=== PATIENT | female | born 1975 | race Caucasian/White ===

== ENCOUNTER 2020-02-15 00:59 | Outpatient (CLI) | payer MEDICAID, SELFPAY ==
--- NOTE | 2020-02-15 | DI.US_ITS ---
EXAM: MYOFASCIAL PAIN SYNDROME OF THORACIC SPINE COMPARISON: No exams were available for comparison TECHNIQUE: Ultrasound performed using standard protocol. FINDINGS: Sonography was provided for Dr. Robles during the performance of a trigger point injection of the righ t rhomboid and trapezius muscles. Please refer to the procedure report for complete details. DATA REPOSITORY:
[2020-02-15 13:50] VITALS: BP 109/83; PULSE 93; RESP 16; TEMP 36.7; O2SAT 98
--- NOTE | 2020-02-15 14:37 | PDOC.PAIN_ITS ---
Pain Clinic Procedure Note Procedure Note Procedure Note: ULTRASOUND GUIDED RIGHT trapeizius, rhomboid and levator scapulae muscle trigger point INJECTIONS Pre-Procedural Evaluation: SHARON MALDONADO has been referred to the [facility] for an Ultrasound Guided right trapezius, rhomboid and levator scapulae muscle trigger point injection for a chief complaint of right shoulder blade area pain. Pre-procedure Pain Score: 5/10 Patient was interviewed and the medical record reviewed. There were no medical, pharmacologic, radiographic, or other structural contraindications to preforming an ultrasound guided injection. Risks and expected side effects as well as potential benefits of the procedure were reviewed. The patient consent form was signed and witnessed. Standard time-out procedure was performed. The use of direct ultrasound visualization of the needle (rather than a non- guided injection) was required to increase patient safety by excluding inadvertent intramuscular, intratendinous, or intraneural needle placement and minimizing bleeding by avoiding osteochondral or vascular injury from the needle. Additionally, the increased accuracy of placement may increase clinical effectiveness and will allow higher diagnostic specificity when evaluating effectiveness of this injection. Procedure Description: The patient was placed in theprone position and automated blood pressure cuff and pulse oximeter applied for monitoring during the procedure and recorded in the medical record. Pre-injection ultrasound scanning of the area of interest was performed using linear transducer, identifying relevant anatomy, landmarks, and neurovascular structures allowing for optimal needle path. The site was then prepared in the usual sterile fashion, using thorough Chlorhexadine preparation of the skin and sterile draping. The same ultrasound transducer was then passed into the sterile field using sterile probe cover and sterile ultrasound gel. The injection target was again visualized. Skin and subcutaneous tissues were anesthetized with [NUMBERS] mL of 1% Lidocaine. A 1.5 25 guage was placed under live ultrasound guidance, using an in-plane approach, to the 5 target areas. After visualization of the needle tip at the target area, a mixture of 4 mL 2% Lidocaine and 1 mL Depomedrol (40 mg/cc), totaling 5 mL of injectate (1 cc to each location) was delivered after negative aspiration for blood. Ultrasound images were captured and stored for documentation purposes. The lung was visualized at all times. Post-procedure Pain Score:1/10 Vital signs were stable throughout the procedure and were as recorded in the docflowsheet by the nursing staff. Follow up plans and appointments were discussed with the patient.Post procedure instruction was given as documented in nursing documentation and having met discharge criteria, they were discharged from the [facility]. COMMENTS: This procedure can be completed up to 3 times per 12 months if it is found to be helpful. Thiago Robles DO, MPH Pain Management
[2020-02-15 14:46] VITALS: PULSE 93; O2SAT 100
[2020-02-15] MEDS: Lidocaine 2% Pres-Free 5 ML VIAL IJ (14:53)
[2020-02-15] MEDS: methylPREDNISolone ACETATE 40 MG/ML VIAL (14:53)
== END 2020-02-15 01:19 ==
PROVIDERS: PCP Family Medicine; Visit Provider Preventive Medicine Occupational Medicine
DX: M79.18 Myalgia, other site (principal)
CPT/HCPCS: 20552; 76942; J1030

== ENCOUNTER 2020-11-28 00:34 | Outpatient (CLI) | payer MEDICAID, SELFPAY ==
[2020-11-28 09:01] VITALS: BP 134/69; PULSE 77; RESP 16; TEMP 36.8; O2SAT 99
--- NOTE | 2020-11-28 09:15 | DI.US_ITS ---
Exam(s) US PAIN CLINIC NEEDLE GUIDANCE EXAM: RT S1 RADICULOPATHY,LUMBAR SPONDYLOSIS,ULTRASOUND GUIDED TPI COMPARISON: US US PAIN CLINIC NEEDLE GUIDANCE from 02/15/2020 TECHNIQUE: Ultrasound performed using standard protocol. FINDINGS: Ultrasound guidance was provided during trigger point injection in the right upper back region. Radi ologist was not present. IMPRESSION: DATA REPOSITORY:
[2020-11-28] MEDS: Dexamethasone Sod. Phos./Pres-Free 10 MG/ML VIAL IJ (09:28)
[2020-11-28 09:30] VITALS: PULSE 70; O2SAT 100
[2020-11-28] MEDS: Lidocaine 1% Pres-Free 5 ML VIAL IJ (09:30)
--- NOTE | 2020-11-28 09:30 | PDOC.PAIN_ITS ---
Pain Clinic Procedure Note Procedure Note Procedure Note: Date of service: November 28, 2020 ULTRASOUND GUIDED RIGHT Trapezius, rhomboid and thoracic paraspinous trigger point INJECTIONS Pre-Procedural Evaluation: Amisha Freeman has been referred to the [facility] for an Ultrasound Guided [right trapezius, rhomboid and thoracic paraspinous muscle trigger point injections for a chief complaint of upper back pain. Pre-procedure Pain Score: 6/10 DX: Muscle pain Patient was interviewed and the medical record reviewed. There were no medical, pharmacologic, radiographic, or other structural contraindications to preforming an ultrasound guided injection. Risks and expected side effects as well as potential benefits of the procedure were reviewed. The patient consent form was signed and witnessed. Standard time-out procedure was performed. The use of direct ultrasound visualization of the needle (rather than a non- guided injection) was required to increase patient safety by excluding inadvertent intramuscular, intratendinous, or intraneural needle placement and minimizing bleeding by avoiding osteochondral or vascular injury from the needle. Additionally, the increased accuracy of placement may increase clinical effectiveness and will allow higher diagnostic specificity when evaluating effectiveness of this injection. Procedure Description: The patient was placed in theprone position and automated blood pressure cuff and pulse oximeter applied for monitoring during the procedure and recorded in the medical record. Pre-injection ultrasound scanning of the area of interest was performed using a linear transducer, identifying relevant anatomy, landmarks, and neurovascular structures allowing for optimal needle path. The site was then prepared in the usual sterile fashion, using thorough Chlorhexadine preparation of the skin and sterile draping. The same ultrasound transducer was then passed into the sterile field using sterile probe cover and sterile ultrasound gel. The injection target was again visualized. Skin and subcutaneous tissues were anesthetized with 3 mL of 1% Lidocaine. A 1.5 25 guage needle was placed under live ultrasound guidance, using an in- plane approach, to the target area. After visualization of the needle tip at the target area, a mixture of 1 mL dexamethasone (10 mg/cc) and 3 cc of 1% Lidocaine, totaling 4 mL of injectate was delivered after negative aspiration for blood. Ultrasound images were captured and stored for documentation purposes. Post-procedure Pain Score:2/10 Vital signs were stable throughout the procedure and were as recorded in the docflowsheet by the nursing staff. Follow up plans and appointments were discussed with the patient.Post procedure instruction was given as documented in nursing documentation and having met discharge criteria, they were discharged from the [facility]. COMMENTS: She did well with this procedure. Thiago Robles DO, MPH Pain Management
== END 2020-11-28 00:54 ==
PROVIDERS: PCP Family Medicine; Visit Provider Preventive Medicine Occupational Medicine
DX: M79.18 Myalgia, other site (principal)
CPT/HCPCS: 20553; 76942

== ENCOUNTER 2020-12-31 07:33 | Outpatient (CLI) | payer MEDICAID, SELFPAY ==
[2020-12-31 07:47] VITALS: BP 112/60; PULSE 75; RESP 18; TEMP 37.2; O2SAT 100
--- NOTE | 2020-12-31 08:02 | PDOC.PAIN ---
Pain Clinic Procedure Note Procedure Note Procedure Note: Lumbar Epidural Steroid Injection Procedure Note Pre-operative diagnosis: lumbar radiculopathy Post-operative diagnosis: same as above COMMENTS: patient was evaluated by Ms Zeenat Navarrete APRN in our pain clinic with axial back pain with baseline bilateral hip pain (per note, patient has congenital hip condition) with intermittent right lower extremity pain. MRI L spine shows disc bulge at L5-S1 with possible impingement of right traversing S1 nerve root. Given patient's MRI L spine finding and her clinical symptomology, decision made to proceed with L5-S1 right paramedian approach to target the right S1 nerve root Amisha Freeman has been referred to the [facility] for lumbar epidural steroid injection. The patient was greeted by the nurse who verified patients name and . Patient was then taken to the fluoroscopy suite. The patient was interviewed and the medial record reviewed. There were no medical, pharmacologic, radiographic, or other structural contraindications to attempting fluoroscopically guided lumbar epidural steroid injection. Risks and expected side effects as well as potential benefits of the procedure were reviewed and voiced concerns expressed. The patient consent form was signed and witnessed. Standard patient time-out procedure was performed. The patient was placed in the prone position on the fluoroscopy table and automated blood pressure cuff and pulse oximeter applied. The skin entry point for entering/approaching the epidural space by a L5-S1 and marked. Following thorough chlorhexadine preparation of the skin and draping and 1% lidocaine infiltration of the skin entry point and subcutaneous tissues, a 18 gauge Touhy needle was placed under fluoroscopic guidance and with loss of resistance technique into the epidural space. Needle tip placement and depth were aided and confirmed by fluoroscopy. There was no paresthesia or return of blood or CSF through the needle. 1 cc's of Omnipaque 240 was injected with clear epidural spread confirmed with fluoroscopy. 15mg preservative free dexamethasone was injected. This was followed by 1cc of preservative free normal saline and 0.5cc of preservative free 1% lidocaine. There was not any unusual discomfort expressed by Amisha Freeman. Patient's vital signs were stable throughout the procedure and were as recorded in nursing records. Follow up plans and appointments were discussed with patient. Post procedure instruction was given as documented in nursing records and having met discharge criteria and was discharged from the [facility]. COMMENTS: Pre-VAS pain score 7 out of 10. Post-VAS pain score 2 out of 10. Halie Weinberg MD Pain Management
--- NOTE | 2020-12-31 08:20 | DI.RAD_ITS ---
Exam(s) XR PAIN CLINIC LUMBAR SP 2V EXAM: XR PAIN CLINIC LUMBAR SP 2V CLINICAL HISTORY: Dx: Lumbar Radiculopathy. TECHNIQUE: Fluoroscopy was provided for the referring physician for guidance with performing injecti on procedure. COMPARISON: No exams were available for comparison FINDINGS: Please see procedure note for details. Fluoro time 15.8 seconds RADIATION DOSE DELIVERED: Rikkir=2.22 mGy
[2020-12-31] MEDS: Dexamethasone Sod. Phos./Pres-Free 10 MG/ML VIAL IJ (08:22)
[2020-12-31] MEDS: Omnipaque 240 MG/ML 50 ML BTL IJ (08:28)
[2020-12-31 08:32] VITALS: BP 121/79; PULSE 76; RESP 14; O2SAT 98
== END 2020-12-31 07:34 | disposition home or self-care (01) ==
LOC: PC 07:34
PROVIDERS: PCP Family Medicine; Visit Provider Internal Medicine
DX: M54.16 Radiculopathy, lumbar region (principal)
CPT/HCPCS: 62323; 72100; Q9967

== ENCOUNTER 2022-08-26 14:53 | Outpatient (CLI) | payer MEDICAID, SELFPAY ==
[2022-08-26 15:03] VITALS: BP 146/90; PULSE 90; RESP 20; TEMP 36.8; O2SAT 100
[2022-08-26] MEDS: methylPREDNISolone ACETATE 40 MG/ML VIAL IJ (16:00)
[2022-08-26] MEDS: Lidocaine 2% Pres-Free 5 ML VIAL IJ (16:00)
[2022-08-26 16:03] VITALS: PULSE 85; O2SAT 100
--- NOTE | 2022-08-26 16:09 | PDOC.PAIN ---
Date of service: 08/26/22 Time of Service: 16:09 Pain Clinic Procedure Note Procedure Note Procedure Note: ULTRASOUND GUIDED TRIGGER POINT INJECTIONS Pre-Procedural Evaluation: Amisha Freeman has been referred to the [facility] for an Ultrasound Guided bilateral lumbar paraspinous, right rhomboid, and right trapezius trigger point injections for a chief complaint of muscle pain. Pre-procedure Pain Score: 6/10 Patient was interviewed and the medical record reviewed. There were no medical, pharmacologic, radiographic, or other structural contraindications to preforming an ultrasound guided injection. Risks and expected side effects as well as potential benefits of the procedure were reviewed. The patient consent form was signed and witnessed. Standard time-out procedure was performed. The use of direct ultrasound visualization of the needle (rather than a non-guided injection) was required to increase patient safety by excluding inadvertent intramuscular, intratendinous, or intraneural needle placement and minimizing bleeding by avoiding osteochondral or vascular injury from the needle. Additionally, the increased accuracy of placement may increase clinical effectiveness and will allow higher diagnostic specificity when evaluating effectiveness of this injection. Procedure Description: The patient was placed in the prone position and automated blood pressure cuff and pulse oximeter applied for monitoring during the procedure and recorded in the medical record. Pre-injection ultrasound scanning of the area of interest was performed using linear transducer, identifying relevant anatomy, landmarks, and neurovascular structures allowing for optimal needle path. The site was then prepared in the usual sterile fashion, using thorough Chlorhexadine preparation of the skin and sterile draping. The same ultrasound transducer was then passed into the sterile field using sterile probe cover and sterile ultrasound gel. The injection target was again visualized. Skin and subcutaneous tissues were anesthetized with 4 mL of 1% Lidocaine. A 22 G 3.5 Pajunk ultrasound needle was placed under live ultrasound guidance, using an in-plane approach, to the target area. After visualization of the needle tip at the target area, 1 cc of Lidocaine (2%) was injected at each muscle, followed by 1/4 cc of Depomedrol (40 mg/cc) and this was flushed with 1 more cc of 2% Lidocaine. Several passes were made through the muscle. The above medication was delivered after negative aspiration for blood. Ultrasound images were captured and stored for documentation purposes. Post-procedure Pain Score:2/10 Vital signs were stable throughout the procedure and were as recorded in the docflowsheet by the nursing staff. Follow up plans and appointments were discussed with the patient.Post procedure instruction was given as documented in nursing documentation and having met discharge criteria, they were discharged from the [facility]. COMMENTS: If this procedure is helpful, it can be completed up to 4 times per 12 months. Thiago Robles DO, MPH [facility]-Pain Management [facility]-Center for Pain Management
== END 2022-08-26 14:54 | disposition home or self-care (01) ==
PROVIDERS: PCP Family Medicine; Visit Provider Preventive Medicine Occupational Medicine
DX: M79.18 Myalgia, other site (principal)
CPT/HCPCS: 20553; J1030

== ENCOUNTER 2023-04-08 10:21 | Outpatient (CLI) | payer MEDICAID, SELFPAY ==
[2023-04-08 10:35] VITALS: BP 119/78; PULSE 89; RESP 20; TEMP 37; O2SAT 93
[2023-04-08 11:25] VITALS: PULSE 77; O2SAT 99
[2023-04-08] MEDS: Lidocaine 2% Pres-Free 5 ML VIAL IJ (11:59)
[2023-04-08] MEDS: methylPREDNISolone ACETATE 40 MG/ML VIAL IJ (12:01)
--- NOTE | 2023-04-13 08:29 | PDOC.PAIN ---
Date of service: 04/08/23 Time of Service: 11:00 US Guided Injections Type of Ultrasound Guided Injection: Trigger Point Injection (bilateral lumbar paraspinous muscles and right rhomboid muscle) Pre-Procedural Evaluation TTP at the right Rhomboid and bilateral lumbar paraspinous muscles Referral Patient has been referred to the [facility] for Trigger Point Injection for a chief complaint of Low back and mid back muscle pain Pre-Procedural Pain Score Pre-procedural pain score: 8/10 Reason for Exam Muscle pain Patient Interview Patient was interviewed and medical record reviewed: Yes There were no contraindications to performing an US guided procedure. Risks,expected side effects, potential benefits were reviewed. The patient consent form was signed and witnessed. Standard time out procedure was performed. Patient Safety No skin abnormalities over the proposed injection sites Procedure Description No sedation given for procedure Patient was placed in the prone position and the following Pulse Ox applied. Pre-Procedure ultrasound scanning performed using a Linear 18 MHz probe Site Preparation Chloroprep Local Anesthesia of Lidocaine 2% (3 cc). A 21 G 3.5 Pajunk ultrasound needle was placed under live US guidance using an in-plane approach to the target area. After visualization of the needle tip at the target area Depo-Medrol 40mg per cc (40 mg) were used. Patient Mental Status Patient was alert and awake during procedure Vital Signs Vital signs were stable throughout the procedure and recorded by nursing. Follow Up/Discharge Follow up plans and appointments were discussed with patient. Post procedure instruction was given as documented in nursing documentation. Discharge criteria met and patient discharged from Pain Management Center: Yes Post Procedure Pain Post Procedure Pain: 0/10 Patient tolerated procedure well and No complications Procedure Outcome: Successful Trigger Point Injection 3+muscles Non US Guided Injections Procedure Description Patient was placed in the prone position Post Procedure Pain Post Procedure Pain: 0/10
== END 2023-04-08 10:22 | disposition home or self-care (01) ==
LOC: PC 10:22
PROVIDERS: PCP Family Medicine; Visit Provider Preventive Medicine Occupational Medicine
DX: M79.18 Myalgia, other site (principal)
CPT/HCPCS: 00123; 20553; J1030

== ENCOUNTER 2025-05-23 10:25 | Outpatient (CLI) | payer MEDICAID, SELFPAY ==
[2025-05-23 10:54] VITALS: BP 125/81; PULSE 89; RESP 20; TEMP 36.7; O2SAT 100
[2025-05-23 11:08] VITALS: PULSE 75; O2SAT 99
[2025-05-23 11:10] VITALS: PULSE 84; O2SAT 99
[2025-05-23 11:20] VITALS: PULSE 89; O2SAT 100
[2025-05-23] MEDS: methylPREDNISolone ACETATE 40 MG/ML VIAL IJ (11:25)
[2025-05-23] MEDS: Nerve Block Tray 1 EACH MC (11:25)
[2025-05-23] MEDS: Lidocaine 2% Multi-Dose 20 ML VIAL IJ (11:25)
--- NOTE | 2025-05-23 14:26 | PDOC.PAIN_ITS ---
Date of service: 05/23/25 Time of Service: 11:00 US Guided Injections Type of Ultrasound Guided Injection: Middle back Right Rhomboid muscle Trigger Point Injection Pre-Procedural Evaluation Pain with palpation over the right Rhomboid muscle Referral Patient has been referred to the [facility] for Right Rhomboid muscle Middle back Trigger Point Injection for a chief complaint of Midback pain Pre-Procedural Pain Score Pre-procedural pain score: 8/10 Reason for Exam midback pain Patient Interview Patient was interviewed and medical record reviewed: Yes There were no contraindications to performing an US guided procedure. Risks,expected side effects, potential benefits were reviewed. The patient consent form was signed and witnessed. Standard time out procedure was performed. Patient Safety No significant skin abnormalities at the proposed injection sites Procedure Description No sedation given for procedure Patient was placed in the prone position and the following Pulse Ox applied. Pre-Procedure ultrasound scanning performed using a Linear 9 MHz probe Site Preparation Chloroprep Local Anesthesia Skin and subcutaneous tissues anesthetized with: 3 mL of Lidocaine 2%. A Other (1.5 skin needle) was placed under live US guidance using an in-plane approach to the target area. After visualization of the needle tip at the target area Depo-Medrol 40mg per cc and Lidocaine 2% were used. Total of Injectate/Medication Note: 1 cc of Depomedrol and 5 cc of 2% Lidocaine Negative aspiration for blood. [place] were removed without difficulty. Ultrasound images were captured and stored. Patient Mental Status Patient was alert and awake during procedure Vital Signs Vital signs were stable throughout the procedure and recorded by nursing. Follow Up/Discharge Follow up plans and appointments were discussed with patient. Post procedure instruction was given as documented in nursing documentation. Discharge criteria met and patient discharged from Pain Management Center: Yes Post Procedure Pain Post Procedure Pain: 1/10 Patient tolerated procedure well Procedure Outcome: Successful Non US Guided Injections Procedure Description Patient was placed in the prone position Post Procedure Pain Post Procedure Pain: 110 Coding Conscious Sedation used for procedure: No CPT Codes: TPI Single/Multi 1 or 2 Muscles - (1076451 ~G) Additional Codes: Date of Service () Visualization of the needle tip - Ultrasound images captured/stored: Yes ([id number]) Diagnoses: Muscle pain
== END 2025-05-23 10:26 | disposition home or self-care (01) ==
LOC: PC 10:25
PROVIDERS: PCP Family Medicine; Visit Provider Preventive Medicine Occupational Medicine
DX: M54.6 Pain in thoracic spine (principal); M79.18 Myalgia, other site
CPT/HCPCS: 20552; 76942; J1010; J2003